=== PATIENT | male | born 1955 | race Caucasian/White ===

== ENCOUNTER → 2023-11-09 13:17 | Outpatient (REF) | payer OTHER, SELFPAY | LOC: CLAB 13:17 | PROVIDERS: ATTENDING PHYSICIAN Otolaryngology | DX: H66.002 Acute suppurative otitis media without spontaneous rupture of ear drum, left ear (principal); H60.332 Swimmer's ear, left ear | CPT/HCPCS: 87070; 87077; 87186 ==

== ENCOUNTER → 2024-08-02 11:15 | Outpatient (REF) | payer OTHER, SELFPAY | LOC: HWRAD 11:15 | PROVIDERS: ATTENDING PHYSICIAN Internal Medicine | DX: E87.1 Hypo-osmolality and hyponatremia (principal) | CPT/HCPCS: 71046 ==